=== PATIENT | male | born 1945 | race Caucasian/White ===

== ENCOUNTER 2022-07-25 07:45 | Inpatient (IN) | payer MEDICARE, MEDICAID ==
[~2022-07-25] VITALS: Ht 172.7 cm; Wt 75.3 kg
[~2022-07-25 07:45] MED LIST: ACET-784 PO; ASCO-363 PO; BISA10SU8 RC; CALC-255 PO; DOCU100C98 PO; IPRA0.2S54 IH; LEVA1.2525 NEB; MAGN30OR PO; MVI WITH MINERAL PO; OLAN2.5T3 PO; PANT-31 PO; SERT-158 PO; ZOLP-280 PO
[2022-07-25 08:37] LABS: BASOPHILS % (AUTO) 0.6 % (0.0-2.0); EOSINOPHILS % (AUTO) 1.7 % (1.0-6.0); HEMATOCRIT 45.7 % (41-53); HEMOGLOBIN 14.9 g/dL (13.5-17.5); LYMPHOCYTES # (AUTO) 0.8 K/uL (1.0-4.8); LYMPHOCYTES % (AUTO) 7.9 % (22.0-44.0); MEAN CORPUSCULAR HEMOGLOBIN 29.6 pg (26.0-34.0); MEAN CORPUSCULAR HGB CONC 32.5 G/dL (31.0-37.0); MEAN CORPUSCULAR VOLUME 91 fL (80-100); MONOCYTES # (AUTO) 0.9 K/uL (0.1-1.0); MONOCYTES % (AUTO) 8.9 % (2.0-9.0); NEUTROPHILS # (AUTO) 7.8 K/uL (1.8-7.7); NEUTROPHILS % (AUTO) 80.9 % (40.0-70.0); PLATELET COUNT (AUTO) 132 K/uL (150-450); RED BLOOD CELL COUNT(AUTO) 5.02 MIL/uL (4.50-5.90); RED CELL DISTRIBUTION WIDTH 14.4 % (11.5-14.5)
[2022-07-25 08:51] LABS: CALCIUM, TOTAL 10.1 mg/dL (8.8-10.5); CREATININE 2.29 mg/dL (0.60-1.30); INR 1.2 (0.9-1.1); POTASSIUM 3.4 mmol/L (3.5-5.1); PROTHROMBIN TIME 12.6 SEC (9.4-11.6)
[2022-07-25] MEDS ORDERED: LOSA-30 PO (08:55)
[2022-07-25] MEDS ORDERED: MEMA14CA PO (08:55)
[2022-07-25] MEDS ORDERED: ATOR10TA84 PO (08:55)
[2022-07-25] MEDS ORDERED: DONE-51 PO (08:55)
[2022-07-25 08:57] LABS: BILIRUBIN,TOTAL 0.8 mg/dL (0.1-1.0); TOTAL PROTEIN, SERUM 7.1 g/dL (6.4-8.2)
[2022-07-25] MEDS ORDERED: ASPIRIN 325 MG TABLET PO ONE (09:30)
[2022-07-25] MEDS ORDERED: DEXTROSE 5%-WATER 1,000 ML IV ONE (12:30)
[2022-07-25] MEDS ORDERED: INSULIN LISPRO 100 UNITS/ML SQ PRN (12:30)
[2022-07-25] MEDS ORDERED: ACETAMINOPHEN 325 MG TABLET PO PRN (12:30)
[2022-07-25] MEDS ORDERED: DEXTROSE 50%-WATER 25 GM/50 ML SYRINGE IVP PRN (12:30)
[2022-07-25] MEDS ORDERED: ONDANSETRON HCL 4 MG/2 ML VIAL IVP PRN (12:30)
[2022-07-25] MEDS ORDERED: BISA10SU11 PR (14:24)
[2022-07-25] MEDS ORDERED: MULT-248 PO (14:24)
[2022-07-25] MEDS ORDERED: IPRNEB IH (14:24)
[2022-07-25] MEDS ORDERED: DOCU-385 PO (14:24)
[2022-07-25] MEDS ORDERED: CALC-789 PO (14:24)
[2022-07-25 15:32] LABS: COVID AG,FIA SOURCE NASAL SWAB
[2022-07-25] MEDS ORDERED: HEPARIN SODIUM,PORCINE 5,000 UNITS/ML VIAL SQ SCH (16:00)
[2022-07-25 16:35] VITALS: BP 153/81
[2022-07-25 20:04] VITALS: BP 135/66
[2022-07-25] MEDS: DOCUSATE SODIUM 100 MG CAPSULE PO SCH (21:00)
[2022-07-25] MEDS ORDERED: ATORVASTATIN CALCIUM 40 MG TABLET PO ONE (21:15)
[2022-07-25] MEDS ORDERED: HEPARIN SODIUM,PORCINE 5,000 UNITS/ML VIAL IVP PRN ×2 (21:15)
[2022-07-25] MEDS ORDERED: HEPARIN SODIUM,PORCINE 5,000 UNITS/ML VIAL IVP ONE (21:15)
[2022-07-25 21:26] LABS: GLUCOMETER DEV NAME(LOC) 5S.2B; GLUCOSE,POINT OF CARE 112 MG/DL (70-110)
[2022-07-25] MEDS: HEPARIN SODIUM 25000 UNITS/D5W 250 ML IV PRN (22:21)
[2022-07-25 22:26] LABS: BASOPHILS % (AUTO) 0.3 % (0.0-2.0); EOSINOPHILS % (AUTO) 2.9 % (1.0-6.0); HEMATOCRIT 42.9 % (41-53); HEMOGLOBIN 14.2 g/dL (13.5-17.5); LYMPHOCYTES # (AUTO) 1.1 K/uL (1.0-4.8); LYMPHOCYTES % (AUTO) 10.3 % (22.0-44.0); MEAN CORPUSCULAR HEMOGLOBIN 30.2 pg (26.0-34.0); MEAN CORPUSCULAR HGB CONC 33.1 G/dL (31.0-37.0); MEAN CORPUSCULAR VOLUME 91 fL (80-100); MONOCYTES % (AUTO) 10.1 % (2.0-9.0); NEUTROPHILS # (AUTO) 7.8 K/uL (1.8-7.7); NEUTROPHILS % (AUTO) 76.4 % (40.0-70.0); PLATELET COUNT (AUTO) 130 K/uL (150-450); RED CELL DISTRIBUTION WIDTH 14.1 % (11.5-14.5)
[2022-07-25 22:38] LABS: INR 1.2 (0.9-1.1); PROTHROMBIN TIME 12.7 SEC (9.4-11.6)
[2022-07-25 23:08] LABS: CALCIUM, TOTAL 9.7 mg/dL (8.8-10.5); CREATININE 1.62 mg/dL (0.60-1.30); POTASSIUM 3.2 mmol/L (3.5-5.1)
[2022-07-26] MEDS ORDERED: POTASSIUM CHLORIDE 20 MEQ ER TABLET PO ONE
[2022-07-26 00:28] VITALS: BP 145/75
[2022-07-26 05:19] VITALS: BP 144/76
[2022-07-26 07:03] LABS: BASOPHILS % (AUTO) 0.5 % (0.0-2.0); EOSINOPHILS % (AUTO) 2.9 % (1.0-6.0); HEMATOCRIT 44.5 % (41-53); HEMOGLOBIN 14.6 g/dL (13.5-17.5); LYMPHOCYTES # (AUTO) 0.9 K/uL (1.0-4.8); LYMPHOCYTES % (AUTO) 8.7 % (22.0-44.0); MEAN CORPUSCULAR HGB CONC 32.8 G/dL (31.0-37.0); MEAN CORPUSCULAR VOLUME 91 fL (80-100); MONOCYTES # (AUTO) 0.9 K/uL (0.1-1.0); MONOCYTES % (AUTO) 8.5 % (2.0-9.0); NEUTROPHILS # (AUTO) 8.6 K/uL (1.8-7.7); NEUTROPHILS % (AUTO) 79.4 % (40.0-70.0); PLATELET COUNT (AUTO) 142 K/uL (150-450); RED BLOOD CELL COUNT(AUTO) 4.88 MIL/uL (4.50-5.90); RED CELL DISTRIBUTION WIDTH 14.3 % (11.5-14.5)
[2022-07-26 07:16] LABS: CALCIUM, TOTAL 9.8 mg/dL (8.8-10.5); CREATININE 1.58 mg/dL (0.60-1.30); POTASSIUM 3.4 mmol/L (3.5-5.1)
[2022-07-26 07:40] VITALS: BP 138/63
[2022-07-26] MEDS: DOCUSATE SODIUM 100 MG CAPSULE PO SCH ×2 (08:57→21:50)
[2022-07-26] MEDS: ASPIRIN 81 MG CHEWABLE TABLET PO SCH (08:57)
[2022-07-26] MEDS: FAMOTIDINE 20 MG TABLET PO SCH (08:58)
[2022-07-26] MEDS: CARVEDILOL 3.125 MG TABLET PO SCH ×2 (08:58→21:50)
[2022-07-26] MEDS: ATORVASTATIN CALCIUM 40 MG TABLET PO SCH (08:58)
[2022-07-26] MEDS: HEPARIN SODIUM 25000 UNITS/D5W 250 ML IV PRN (09:00)
[2022-07-26 11:41] VITALS: BP 139/70
[2022-07-26] MEDS ORDERED: DEXTROSE 5%-WATER 1,000 ML IV ONE (12:30)
[2022-07-26 15:18] VITALS: BP 137/72
[2022-07-26 17:57] LABS: GLUCOMETER DEV NAME(LOC) 5S.2B; GLUCOSE,POINT OF CARE 77 MG/DL (70-110)
[2022-07-26 20:20] VITALS: BP 130/63
[2022-07-27 00:17] VITALS: BP 108/52
[2022-07-27 02:41] LABS: GLUCOMETER DEV NAME(LOC) 5S.2B; GLUCOSE,POINT OF CARE 95 MG/DL (70-110)
[2022-07-27 04:51] LABS: GLUCOMETER DEV NAME(LOC) 5N.3; GLUCOSE,POINT OF CARE 112 MG/DL (70-110)
[2022-07-27 04:52] LABS: GLUCOMETER DEV NAME(LOC) 5N.3; GLUCOSE,POINT OF CARE 209 MG/DL (70-110)
[2022-07-27 05:02] VITALS: BP 110/51
[2022-07-27 06:13] LABS: HEMOGLOBIN A1C 5.6 % (3.8-5.6)
[2022-07-27 06:48] LABS: CALCIUM, TOTAL 9.2 mg/dL (8.8-10.5); CHOL/HDL RATIO 4.4 (4.2-7.3); CREATININE 1.36 mg/dL (0.60-1.30)
[2022-07-27 08:05] VITALS: BP 129/51
[2022-07-27] MEDS: FAMOTIDINE 20 MG TABLET PO SCH (09:25)
[2022-07-27] MEDS: ASPIRIN 81 MG CHEWABLE TABLET PO SCH (09:25)
[2022-07-27] MEDS: CARVEDILOL 3.125 MG TABLET PO SCH (09:25)
[2022-07-27] MEDS: ATORVASTATIN CALCIUM 40 MG TABLET PO SCH (09:25)
[2022-07-27] MEDS: DOCUSATE SODIUM 100 MG CAPSULE PO SCH ×2 (09:25→21:31)
[2022-07-27 11:45] VITALS: BP 140/61
[2022-07-27] MEDS: DEXTROSE 5%-WATER 1,000 ML IV SCH (14:00)
[2022-07-27] MEDS ORDERED: POTASSIUM CHLORIDE 10% 40 MEQ/30 ML LIQUID UDCUP PO ONE (14:15)
[2022-07-27 15:06] LABS: GLUCOMETER DEV NAME(LOC) 5S.2B; GLUCOSE,POINT OF CARE 107 MG/DL (70-110)
[2022-07-27 15:06] LABS: GLUCOMETER DEV NAME(LOC) 5S.2B; GLUCOSE,POINT OF CARE 83 MG/DL (70-110)
[2022-07-27 16:35] VITALS: BP 126/48
[2022-07-27 17:06] LABS: GLUCOMETER DEV NAME(LOC) 5S.2B; GLUCOSE,POINT OF CARE 82 MG/DL (70-110)
[2022-07-27 20:20] VITALS: BP 128/57
[2022-07-28 00:18] VITALS: BP 131/69
[2022-07-28 03:45] VITALS: BP 117/60
[2022-07-28] MEDS: DEXTROSE 5%-WATER 1,000 ML IV SCH (06:40)
[2022-07-28 07:03] LABS: BASOPHILS % (AUTO) 0.8 % (0.0-2.0); EOSINOPHILS % (AUTO) 3.1 % (1.0-6.0); HEMOGLOBIN 13.6 g/dL (13.5-17.5); LYMPHOCYTES # (AUTO) 1.1 K/uL (1.0-4.8); LYMPHOCYTES % (AUTO) 11.6 % (22.0-44.0); MEAN CORPUSCULAR HEMOGLOBIN 30.2 pg (26.0-34.0); MEAN CORPUSCULAR HGB CONC 33.1 G/dL (31.0-37.0); MEAN CORPUSCULAR VOLUME 91 fL (80-100); MONOCYTES # (AUTO) 0.8 K/uL (0.1-1.0); NEUTROPHILS % (AUTO) 75.5 % (40.0-70.0); PLATELET COUNT (AUTO) 153 K/uL (150-450); RED BLOOD CELL COUNT(AUTO) 4.49 MIL/uL (4.50-5.90); RED CELL DISTRIBUTION WIDTH 13.7 % (11.5-14.5)
[2022-07-28 07:20] LABS: CALCIUM, TOTAL 8.9 mg/dL (8.8-10.5); CREATININE 1.25 mg/dL (0.60-1.30); POTASSIUM 3.2 mmol/L (3.5-5.1)
[2022-07-28 07:45] VITALS: BP 143/62
[2022-07-28] MEDS: FAMOTIDINE 20 MG TABLET PO SCH (08:43)
[2022-07-28] MEDS: DOCUSATE SODIUM 100 MG CAPSULE PO SCH (08:43)
[2022-07-28] MEDS: ASPIRIN 81 MG CHEWABLE TABLET PO SCH (08:43)
[2022-07-28] MEDS: ATORVASTATIN CALCIUM 40 MG TABLET PO SCH (08:43)
[2022-07-28 11:06] LABS: GLUCOMETER DEV NAME(LOC) 5S.2B; GLUCOSE,POINT OF CARE 95 MG/DL (70-110)
[2022-07-28 11:25] VITALS: BP 153/59
[2022-07-28] MEDS ORDERED: POTASSIUM CHLORIDE 10% 40 MEQ/30 ML LIQUID UDCUP PO ONE (12:45)
[2022-07-28] MEDS ORDERED: ASPI-1450 PO (13:32)
[2022-07-28 14:51] LABS: GLUCOMETER DEV NAME(LOC) 5S.2B; GLUCOSE,POINT OF CARE 92 MG/DL (70-110)
[2022-07-28 16:12] VITALS: BP 142/77
[2022-07-28 20:12] VITALS: BP 122/63
[2022-07-29 08:41] LABS: GLUCOMETER DEV NAME(LOC) 5N.3; GLUCOSE,POINT OF CARE 119 MG/DL (70-110)
== END 2022-07-28 20:55 | DRG 682 ==
LOC: EMS 07:47 → 5N 14:57
PROVIDERS: ADMIT Internal Medicine; ATTEND Internal Medicine
DX: N17.9 Acute kidney failure, unspecified (principal); G93.41 Metabolic encephalopathy; E87.1 Hypo-osmolality and hyponatremia; A52.3 Neurosyphilis, unspecified; F03.90 Unspecified dementia, unspecified severity, without behavioral disturbance, psychotic disturbance, mood disturbance, and anxiety; E86.0 Dehydration; I12.9 Hypertensive chronic kidney disease with stage 1 through stage 4 chronic kidney disease, or unspecified chronic kidney disease; N18.9 Chronic kidney disease, unspecified; J44.9 Chronic obstructive pulmonary disease, unspecified; Z20.822 Contact with and (suspected) exposure to COVID-19; F32.A Depression, unspecified; Z79.899 Other long term (current) drug therapy; Z86.73 Personal history of transient ischemic attack (TIA), and cerebral infarction without residual deficits; Z79.82 Long term (current) use of aspirin
CPT/HCPCS: 70450; 71045; 76770; 80048; 80053; 80061; 82962; 83036; 83880; 84484; 85025; 85610; 85730; 87081; 92610; 93005; 93306; 97162; 99285; J1644; J7060; 36415-L1; 36415-TC